=== PATIENT | male | born 1940 | race Caucasian/White ===

== ENCOUNTER 2025-01-29 11:56 | Outpatient (CLI) | payer MEDICARE, BC, SELFPAY ==
--- NOTE | 2025-01-29 14:02 | P.ANES_ITS ---
Anesthesia Charges Start Date/Time Anesthesia Start Date: 01/29/25 Anesthesia Start Time: 13:40 Stop Date/Time Anesthesia Stop Date: 01/29/25 Anesthesia Stop Time: 14:01 Summary Extremes of Age - Over 70 or under 1: STOCK HANDLER Coding CPT Codes CPT Codes: NANCY LWR INTST SCR COLSC - 98796 ([id number]) P2 - PATIENT W/MILD SYST DISEASE, QZ - STOCK HANDLER SVC W/O SHROUDMAN BY Additional Codes: Summary - Extremes of Age - Over 70 or under 1: STOCK HANDLER ([id number])
--- NOTE | 2025-01-29 14:02 | W.ANESCHARGE ---
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
== END 2025-01-29 11:57 | disposition home or self-care (01) ==
LOC: OP CLINIC 11:59
PROVIDERS: PCP Family Medicine; Visit Provider Internal Medicine Gastroenterology
DX: K92.1 Melena (principal); K64.8 Other hemorrhoids
CPT/HCPCS: 00811; 00812; 45378; 99100; J2704